=== PATIENT | female | born 1985 | race Caucasian/White ===

== ENCOUNTER 2021-07-08 19:44 | Emergency (ER) | payer BC ==
[~2021-07-08] VITALS: Ht 162.6 cm; Wt 90.0 kg
[2021-07-08] MEDS ORDERED: KETOROLAC 30MG/ML VIAL IV STA (22:10)
[2021-07-08] MEDS ORDERED: SODIUM CHLORIDE 0.9% 1,000 ML IV ONE (22:15)
[2021-07-08] MEDS ORDERED: AMPICILLIN SOD/SULBACTAM NA 3 G in SODIUM CHLORIDE 0.9% 100 ML IV SCH (22:15)
[2021-07-08 23:17] LABS: BASOPHILS % 0.2 % (0.0-2.0); EOSINOPHILS % 0.4 % (0.0-5.0); HEMATOCRIT. 37.2 % (36.0-48.0); HEMOGLOBIN. 12.7 g/dL (12.0-16.0); LYMPHOCYTES % 13.2 % (20.0-50.0); MEAN CORPUSCULAR HEMOGLOBIN 30.5 pg (28.0-32.0); MEAN CORPUSCULAR VOLUME 89.1 fL (81.0-99.0); MEAN PLATELET VOLUME 9.4 fl (7.4-10.4); NEUTROPHILS % 77.2 % (40.0-76.0); PLATELET 242 x1000/uL (130-400); RED BLOOD CELL COUNT 4.17 mill/uL (4.2-5.4); RED CELL DISTRIBUTION WIDTH 14.4 % (11.6-14.6)
[2021-07-08 23:19] LABS: CHLORIDE 104 mEq/L (98-107)
[2021-07-09 00:43] LABS: HCG SCREEN NEGATIVE
[2021-07-09] MEDS ORDERED: IOHEXOL-300 100 ML BOTTLE ONE (01:59)
[2021-07-09] MEDS ORDERED: CLIN-116 MT (02:23)
[2021-07-09 02:40] VITALS: BP 117/72
== END 2021-07-09 02:50 | disposition home or self-care (01) ==
LOC: ER 19:44
DX: M54.2 Cervicalgia (principal)
CPT/HCPCS: 36415; 70491; 80053; 83605; 84703; 85025; 87040; 93005; 96365; 96366; 96375; 99285; J0295; J1885; J7030; J7050; Q9967